=== PATIENT | male | born 1985 | race Caucasian/White ===

== ENCOUNTER 2017-04-03 06:56 | Emergency (ER) | payer BC ==
[2015-05-28 09:58] VITALS: Wt 90.7 kg
[~2017-04-03 06:56] MED LIST: CLON-303; CLON-303 PO; CLON-389 PO; DIV500ER PO; DIVA-6 PO; DIVA250T84 PO; DIVA500T98 PO; ESCI20TA38 PO; FLUO-201 PO; FLUO-202 PO; FLUO40CA76; GABA-549 PO; HYDR25CA83 PO; HYDR50CA47 PO; LAMO100T56 PO; LISD40PT PO; LOR1; LOR5/325 PO; LORA-1455 PO; METH20TA33; METH20TA33 PO; METH5TAB85 PO; METHY10 PO; MULT-1379 PO; NICO-218 TD; OXCA600T32 PO; PROP160C20 PO; QUET100T29 PO; QUET400T11 PO; QUET50TA21 PO; VENL150C61 PO; VENL75TA12 PO; ZIPR20CA23 PO; ZIPR20CA24 PO; ZIPR40CA14 PO; [UNRECOGNIZED DRUG - CODE] PO; [UNRECOGNIZED DRUG - CODE] TD
[2017-04-03] MEDS ORDERED: NS(*) 0.9% 1000 ML BAG 1,000 ML IV ONE ×2 (07:26)
[2017-04-03] MEDS ORDERED: ONDANSETRON 4 MG/2 ML VIAL IVP ONE (07:30)
[2017-04-03 07:55] LABS: PLATELET COUNT, AUTOMATED 195 K/uL (150-450)
[2017-04-03 08:00] VITALS: BP 139/83
[2017-04-03] MEDS ORDERED: ONDA4TAB PO (08:24)
--- NOTE | 2017-04-03 08:25 | ER Report ---
History and Physical Time Seen By MD: 07:00 Hx. of Stated Complaint: VOMITING AND ABDOMINAL PAIN SINCE MIDNIGHT HPI/ROS CHIEF COMPLAINT: Nausea vomiting abdominal pain HISTORY OF PRESENT ILLNESS: 31-year-old male long history of psychiatric disorders on multiple antipsychotic medications comes in with a complaint of approximate 5-7 episodes of vomiting and emesis started about 4-5 hours prior to presentation nonbloody nonbilious no diarrhea patient is nonlocalized nonspecific abdominal discomfort patient has a long history of again psychiatric disorder disorders with suicidal attempts and ideation in the past is not suicidal homicidal or gravely disabled at this time. Patient instructed pain is dull aching cramping in the midepigastric area without any eliciting relieving factors patient has no chest pain no cough fever chills or additional complaints noted REVIEW OF SYSTEMS: Respiratory: No cough, no dyspnea. Cardiovascular: No chest pain, no palpitations. Gastrointestinal: Vomiting associated abdominal cramping Musculoskeletal: No back pain. Remainder of the 14 system rev: Yes Allergies: Coded Allergies: Penicillins (Verified Allergy, Severe, 08/07/16) fainting, difficulty breathing avocado (Verified Allergy, Severe, ANAPHYLAXIS, 08/07/16) lamotrigine (Verified Allergy, Severe, RASH, 08/07/16) FLESH EATING RASH gluten (Verified Allergy, Intermediate, 08/07/16) Ciliac Diet, GI BLEEDING latex (Verified Allergy, Intermediate, RASH, 08/07/16) gabapentin (Verified Adverse Reaction, Unknown, seizure activity, 08/07/16) Home Meds Reported Medications Ziprasidone Hcl (GEODON) 20 Mg Capsule, 60 MG PO QAM, CAPSULE 08/10/16 Multivits, W-Fe,Other Min (THERA-M) 1 Each Tablet, 1 EACH PO QDAY 08/10/16 Venlafaxine Hcl (VENLAFAXINE HCL) 75 Mg Tab, 225 MG PO QDAY, TAB EFFEXOR 08/07/16 Divalproex Sodium (DIVALPROEX SODIUM ER) 500 Mg Tab.er.24h, 1500 MG PO QAM, TAB 02/13/16 Escitalopram Oxalate (LEXAPRO) 20 Mg Tablet, 20 MG PO QDAY, TAB 06/03/15 Divalproex Sodium (DIVALPROEX SODIUM ER) 500 Mg Tab.er.24h, 1000 MG PO QHS, TAB 05/27/15 Quetiapine Fumarate (SEROQUEL) 400 Mg Tablet, 100-200 MG PO QHS MAY TAKE 100 MG OR 200 MG NEEDED AT NIGHT FOR INSOMNIA. 03/08/15 Discontinued Reported Medications Ziprasidone Hcl (ZIPRASIDONE HCL) 20 Mg Capsule, 40 MG PO QHS, CAPSULE 08/10/16 Nicotine (NICODERM CQ) 1 Each Patch.td24, 1 EACH TD 7 MG PATCH CHANGE DAILY. 08/10/16 Reviewed Nurses Notes: Yes Old Medical Records Reviewed: Yes Hx Smoking: Yes Smoking Status: Current: Some Days Smoker Exposure to Second Hand Smoke?: Yes Hx Substance Use Disorder: Yes (pot occ) Hx Alcohol Use: Yes Constitutional Vital Sign - Last 24 Hours 04/03/17 07:09 Temp 98.9 Pulse 101 Resp 20 B/P (MAP) 141/89 Pulse Ox 96 Intake and Output 04/03/17 04/03/17 04/04/17 15:00 23:00 07:00 Intake Total 1000 ml Balance 1000 ml Physical Exam General Appearance: The patient is alert, has no immediate need for airway protection and no current signs of toxicity. [ ] Eyes: Pupils dilated to 3-4 mm minimally reactive to light Respiratory: Chest is non tender, lungs are clear to auscultation. Cardiac: regular rate and rhythm [ ] Gastrointestinal: Abdomen is soft mild tenderness to deep palpation primarily in the periumbilical area no right lower quadrant pain no McBurney's tenderness no rebound guarding or masses no Ferrara sign Musculoskeletal: Neck: Neck is supple and non tender. Extremities have full range of motion and are non tender. Skin: No rashes or lesions. [ ] DIFFERENTIAL DIAGNOSIS: After history and physical exam differential diagnosis was considered for enteritis gastroenteritis small bowel obstruction acute appendicitis Medical Decision Making Data Points Result Diagram: 04/03/1770704/03/17 0708 Laboratory Hematology Test 04/03/17 07:08 Red Blood Count 5.53 M/uL (4.00-5.60) Mean Corpuscular Volume 94.6 fL (80.0-96.0) Mean Corpuscular Hemoglobin 33.3 pg (26.0-33.0) Mean Corpuscular Hemoglobin Concent 35.2 g/dL (32.0-36.0) Red Cell Distribution Width 12.8 % (11.5-14.5) Mean Platelet Volume 7.9 fL (7.2-11.1) Neutrophils (%) (Auto) 57.1 % (39.4-72.5) Lymphocytes (%) (Auto) 30.0 % (17.6-49.6) Monocytes (%) (Auto) 11.9 % (4.1-12.4) Eosinophils (%) (Auto) 0.3 % (0.4-6.7) Basophils (%) (Auto) 0.7 % (0.3-1.4) Nucleated RBC Relative Count (auto) 0.2 /100WBC Neutrophils # (Auto) 4.0 K/uL (2.0-7.4) Lymphocytes # (Auto) 2.1 K/uL (1.3-3.6) Monocytes # (Auto) 0.8 K/uL (0.3-1.0) Eosinophils # (Auto) 0.0 K/uL (0.0-0.5) Basophils # (Auto) 0.0 K/uL (0.0-0.1) Nucleated RBC Absolute Count (auto) 0.01 K/uL Urine Color Yellow Urine Clarity Clear Urine pH 7.0 pH (4.8-9.5) Urine Specific [place] 1.012 Urine Protein Negative mg/dL (NEGATIVE) Urine Glucose (UA) Negative mg/dL (NEGATIVE) Urine Ketones Trace mg/dL (NEGATIVE) Urine Blood Negative (NEGATIVE) Urine Nitrite Negative (NEGATIVE) Urine Bilirubin Negative (NEGATIVE) Urine Urobilinogen 2.0 mg/dL (0.2-1.9) Urine Leukocyte Esterase Negative (NEGATIVE) Urine RBC 1 /HPF (0-2/HPF) Urine WBC 1 /HPF (0-5/HPF) Urine Squamous Epithelial Cells Few /LPF (</=FEW) Urine Bacteria Negative /HPF (NONE-FEW) Urine Hyaline Casts Few /LPF (NONE-FEW) Urine Mucus None /HPF (NONE-FEW) Sodium Level 137 mmol/L (137-145) Potassium Level 3.4 mmol/L (3.5-5.0) Chloride Level 98 mmol/L (98-107) Carbon Dioxide Level 23 mmol/L (22-30) Blood Urea Nitrogen 8 mg/dl (9-21) Creatinine 0.80 mg/dl (0.66-1.25) Glomerular Filtration Rate Calc > 60.0 Random Glucose 111 mg/dl (75-110) Calcium Level 9.6 mg/dl (8.4-10.2) Total Bilirubin 0.6 mg/dl (0.2-1.3) Aspartate Amino Transf (AST/SGOT) 28 U/L (0-35) Alanine Aminotransferase (ALT/SGPT) 35 U/L (0-56) Alkaline Phosphatase 60 U/L (0-126) Total Protein 8.3 gm/dl (6.3-8.2) Albumin 4.8 g/dl (3.5-5.0) Lipase 138 U/L (23-300) Urine Opiates Screen Negative Urine Barbiturates Screen Negative Ur Tricyclic Antidepressants Screen Negative Urine Phencyclidine Screen Negative Urine Amphetamines Screen Negative Urine Benzodiazepines Screen Negative Urine Cocaine Screen Negative Urine Cannabinoids Screen Positive Chemistry Test 04/03/17 07:08 White Blood Count 7.1 k/uL (4.5-11.0) Red Blood Count 5.53 M/uL (4.00-5.60) Hemoglobin 18.4 g/dL (14.0-18.0) Hematocrit 52.3 % (42.0-52.0) Mean Corpuscular Volume 94.6 fL (80.0-96.0) Mean Corpuscular Hemoglobin 33.3 pg (26.0-33.0) Mean Corpuscular Hemoglobin Concent 35.2 g/dL (32.0-36.0) Red Cell Distribution Width 12.8 % (11.5-14.5) Platelet Count 195 K/uL (150-450) Mean Platelet Volume 7.9 fL (7.2-11.1) Neutrophils (%) (Auto) 57.1 % (39.4-72.5) Lymphocytes (%) (Auto) 30.0 % (17.6-49.6) Monocytes (%) (Auto) 11.9 % (4.1-12.4) Eosinophils (%) (Auto) 0.3 % (0.4-6.7) Basophils (%) (Auto) 0.7 % (0.3-1.4) Nucleated RBC Relative Count (auto) 0.2 /100WBC Neutrophils # (Auto) 4.0 K/uL (2.0-7.4) Lymphocytes # (Auto) 2.1 K/uL (1.3-3.6) Monocytes # (Auto) 0.8 K/uL (0.3-1.0) Eosinophils # (Auto) 0.0 K/uL (0.0-0.5) Basophils # (Auto) 0.0 K/uL (0.0-0.1) Nucleated RBC Absolute Count (auto) 0.01 K/uL Urine Color Yellow Urine Clarity Clear Urine pH 7.0 pH (4.8-9.5) Urine Specific [place] 1.012 Urine Protein Negative mg/dL (NEGATIVE) Urine Glucose (UA) Negative mg/dL (NEGATIVE) Urine Ketones Trace mg/dL (NEGATIVE) Urine Blood Negative (NEGATIVE) Urine Nitrite Negative (NEGATIVE) Urine Bilirubin Negative (NEGATIVE) Urine Urobilinogen 2.0 mg/dL (0.2-1.9) Urine Leukocyte Esterase Negative (NEGATIVE) Urine RBC 1 /HPF (0-2/HPF) Urine WBC 1 /HPF (0-5/HPF) Urine Squamous Epithelial Cells Few /LPF (</=FEW) Urine Bacteria Negative /HPF (NONE-FEW) Urine Hyaline Casts Few /LPF (NONE-FEW) Urine Mucus None /HPF (NONE-FEW) Glomerular Filtration Rate Calc > 60.0 Calcium Level 9.6 mg/dl (8.4-10.2) Total Bilirubin 0.6 mg/dl (0.2-1.3) Aspartate Amino Transf (AST/SGOT) 28 U/L (0-35) Alanine Aminotransferase (ALT/SGPT) 35 U/L (0-56) Alkaline Phosphatase 60 U/L (0-126) Total Protein 8.3 gm/dl (6.3-8.2) Albumin 4.8 g/dl (3.5-5.0) Lipase 138 U/L (23-300) Urine Opiates Screen Negative Urine Barbiturates Screen Negative Ur Tricyclic Antidepressants Screen Negative Urine Phencyclidine Screen Negative Urine Amphetamines Screen Negative Urine Benzodiazepines Screen Negative Urine Cocaine Screen Negative Urine Cannabinoids Screen Positive Toxicology Test 04/03/17 07:08 Urine Opiates Screen Negative Urine Barbiturates Screen Negative Ur Tricyclic Antidepressants Screen Negative Urine Phencyclidine Screen Negative Urine Amphetamines Screen Negative Urine Benzodiazepines Screen Negative Urine Cocaine Screen Negative Urine Cannabinoids Screen Positive Urinalysis Test 04/03/17 07:08 Urine Color Yellow Urine Clarity Clear Urine pH 7.0 pH (4.8-9.5) Urine Specific [place] 1.012 Urine Protein Negative mg/dL (NEGATIVE) Urine Glucose (UA) Negative mg/dL (NEGATIVE) Urine Ketones Trace mg/dL (NEGATIVE) Urine Blood Negative (NEGATIVE) Urine Nitrite Negative (NEGATIVE) Urine Bilirubin Negative (NEGATIVE) Urine Urobilinogen 2.0 mg/dL (0.2-1.9) Urine Leukocyte Esterase Negative (NEGATIVE) Urine RBC 1 /HPF (0-2/HPF) Urine WBC 1 /HPF (0-5/HPF) Urine Squamous Epithelial Cells Few /LPF (</=FEW) Urine Bacteria Negative /HPF (NONE-FEW) Urine Hyaline Casts Few /LPF (NONE-FEW) Urine Mucus None /HPF (NONE-FEW) ED Course/Re-evaluation ED Course ED clinical course 31-year-old male with multiple episodes of vomiting Baseline labs were relatively normal without any obvious signs of acute dehydration gave him 2 L of fluid he feels significantly better patient will be given by mouth Zofran for home use was given a dose here he is no longer vomiting patient would discharge diagnosis enteritis Decision to Disposition Date: Apr 03, 2017 Decision to Disposition Time: 08:23 Depart Departure Latest Vital Signs Vital Signs Date Time Temp Pulse Resp B/P (MAP) Pulse Ox O2 Delivery O2 Flow Rate FiO2 04/03/17 07:09 98.9 101 20 141/89 96 Impression: Primary Impression: Gastroenteritis Condition: Improved Disposition: HOME OR SELF-CARE Referrals: LAQUITA SHERWOOD 5 Days New Scripts Ondansetron (ZOFRAN ODT) 4 Mg Tab.rapdis 4 MG PO Q6H Y for NAUSEA, #20 TAB 0 Refills TAKE 1 TABLET BY MOUTH EVERY 12 HOURS Prov: IBRAHIMA YOUNG MD 04/03/17 Departure Forms: Medications Reconciliation, Patient Portal Information, ER Transition Record Patient Instructions: Gastroenteritis (DC) IBRAHIMA YOUGN MD Apr 03, 2017 08:25
== END 2017-04-03 08:40 | disposition home or self-care (01) ==
LOC: ER 07:15
DX: K52.9 Noninfective gastroenteritis and colitis, unspecified (principal); F99 Mental disorder, not otherwise specified
CPT/HCPCS: 80305; 81001; 83690; 85025; 96361; 96374; 99284; J2405; J7030; 82040; 82247; 82310; 82374; 82435; 82565; 82947; 84075; 84132; 84155; 84295; 84450; 84460; 84520

== ENCOUNTER → 2017-06-28 | Outpatient (CLI) | payer BC ==
[2015-05-28 09:58] VITALS: BMI 19.8
[~2017-06-28] MED LIST changes: +ONDA4TAB PO
== END ==
LOC: LAB 11:26
PROVIDERS: ATTEND Nurse Practitioner Psychiatric/Mental Health
DX: Z51.81 Encounter for therapeutic drug level monitoring (principal); Z79.899 Other long term (current) drug therapy
CPT/HCPCS: 36415; 80164

== ENCOUNTER → 2018-01-08 | Outpatient (CLI) | payer BC ==
[2015-05-28 09:58] VITALS: BMI 19.8
[~2018-01-08] MED LIST changes: -CLON-303; -CLON-303 PO; +CLON-333; +CLON-333 PO; -DIVA-6 PO; +DIVA500T47 PO
== END ==
LOC: LAB 14:00
PROVIDERS: ATTEND Nurse Practitioner Psychiatric/Mental Health
DX: Z51.81 Encounter for therapeutic drug level monitoring (principal)
CPT/HCPCS: 36415; 80164; 82040; 82247; 82310; 82374; 82435; 82565; 82947; 84075; 84132; 84155; 84295; 84450; 84460; 84520